=== PATIENT | male | born 1970 | race African-American/Black ===

== ENCOUNTER 2016-11-01 16:39 | Emergency (ER) | payer OTHER ==
[~2016-11-01] VITALS: Ht 172.7 cm; Wt 72.6 kg
[2016-11-01 17:15] VITALS: BP 142/86
--- NOTE | 2016-11-01 17:16 | Emergency Room Report ---
History of Present Illness General Chief Complaint: Medical Clearance Source: Patient, EMS Present Illness HPI Patient presents with complaints of chest pain left midsternal Patient was picked up by police And after being picked up complain of the pain Pain is sharp 3/10 Lasting few seconds intermittent Denies any headache or visual changes denies any vomiting or shortness of breath denies any pleurisy Allergies: Coded Allergies: No Known Allergies (Unverified , 11/01/16) Patient History Past Medical History: see triage record Pertinent Family History: none Reviewed Nursing Documentation: PMH: Agreed, PSxH: Agreed Nursing Documentation-PMH Past Medical History: No History, Except For Hx Hypertension: Yes Review of Systems All Other Systems: negative except mentioned in HPI Physical Exam Vital Signs Date Time Temp Pulse Resp B/P Pulse Ox O2 Delivery O2 Flow Rate FiO2 11/01/16 16:38 98.8 112 13 142/86 99 Room Air Sp02 EP Interpretation: reviewed, normal General Appearance: well appearing, no apparent distress Head: normocephalic, atraumatic Eyes: bilateral eye EOMI, bilateral eye PERRL ENT: hearing grossly normal, normal pharynx, TMs + canals normal, uvula midline Neck: full range of motion, supple, no meningismus, no bony tend Respiratory: lungs clear, normal breath sounds, no rhonchi, no respiratory distress, no retraction, no accessory muscle use Cardiovascular #1: normal peripheral pulses, regular rate, rhythm, no edema, no gallop, no JVD, no murmur Gastrointestinal: normal bowel sounds, non tender, soft, no mass, no organomegaly, non-distended, no guarding, no hernia, no pulsatile mass, no rebound Genitourinary: no CVA tenderness Musculoskeletal: normal inspection Neurologic: oriented x3, responsive, cat skinner III-XII nml as tested, motor strength/ tone normal, sensory intact Psychiatric: mood/affect normal Skin: normal color, no rash, warm/dry, palpation normal Lymphatic: normal inspection, no adenopathy Medical Decision Making Diagnostic Impression: Primary Impression: chest pain ER Course Patient has multiple differentials considered At this time EKG was obtained which does not show any obvious acute pathology Patient remaining hemodynamically stable I do not feel that any further imaging or blood work was required given the patient's description and presentation And the patient stable for close half-way M.D. workup EKG Diagnostic Results Rate: normal Rhythm: NSR ST Segments: other - Nonspecific ST and T-wave changes Rhythm Strip Diag. Results EP Interpretation: yes Rate: 77 Rhythm: NSR, no PVC's, no ectopy Last Vital Signs Date Time Temp Pulse Resp B/P Pulse Ox O2 Delivery O2 Flow Rate FiO2 11/01/16 16:38 98.8 112 13 142/86 99 Room Air Status: improved Disposition: D/C TO LAW ENFORCEMENT IN [facility] Condition: Stable Referrals: NOT CHOSEN IPA/MD,REFERRING (PCP) Departure Forms: Assisted Clearance Patient Instructions: Nonspecific Chest Pain, [id number] Additional Instructions: Followup with KAREN Ricketts M.D., D.O. Nov 01, 2016 17:15
== END 2016-11-01 17:30 ==
LOC: EDBD 16:39 → EMR 16:51
DX: Z02.89 Encounter for other administrative examinations (principal); R07.9 Chest pain, unspecified; I10 Essential (primary) hypertension
CPT/HCPCS: 99283